=== PATIENT | female | born 1950 | race Two or more races ===

== ENCOUNTER 2023-01-01 17:28 | Emergency (ER) | payer MEDICARE ==
[~2023-01-01] VITALS: Ht 165.1 cm; Wt 64.4 kg
[2023-01-01] MEDS ORDERED: TDAP [DIPH/PERTUSSIS/TET] 0.5 ML VIAL IM ONE (18:26)
[2023-01-01] MEDS: TDAP [DIPH/PERTUSSIS/TET] 0.5 ML VIAL IM ONE (18:33)
[2023-01-01] MEDS ORDERED: MORPHINE SULFATE INJ 4 MG/ML DISP.SYRIN ONE (19:13)
[2023-01-01] MEDS: MORPHINE SULFATE INJ 2 MG/ML DISP.SYRIN IV ONE (19:18)
[2023-01-01] MEDS ORDERED: IBUP-1957 PO (22:41)
[2023-01-01] MEDS ORDERED: HYDR-3980 PO (22:41)
[2023-01-01 23:50] VITALS: BP 126/71; TEMP 98; O2SAT 100
[2023-01-02] MEDS ORDERED: HYDR-3976 PO (15:41)
== END 2023-01-01 23:50 | disposition home or self-care (01) ==
LOC: ER 17:56
DX: S52.035A Nondisplaced fracture of olecranon process with intraarticular extension of left ulna, initial encounter for closed fracture (principal); E78.00 Pure hypercholesterolemia, unspecified; W10.9XXA Fall (on) (from) unspecified stairs and steps, initial encounter; Y93.89 Activity, other specified; Y92.89 Other specified places as the place of occurrence of the external cause; Y99.8 Other external cause status
CPT/HCPCS: 99285; 96374; 73200; 90471; 90715; J2270